=== PATIENT | female | born 1990 | race Caucasian/White ===

== ENCOUNTER 2017-10-07 21:26 | Emergency (ER) | payer BC ==
[~2017-10-07] VITALS: Ht 157.5 cm; Wt 63.5 kg
== END 2017-10-07 22:36 | disposition home or self-care (01) ==
LOC: ED 21:26
DX: R07.81 Pleurodynia (principal); Z87.891 Personal history of nicotine dependence
CPT/HCPCS: 71046; 81001; 87088; 99283

== ENCOUNTER 2023-02-23 08:00 | Inpatient (IN) | payer BC ==
--- OUTSIDE RECORDS SUMMARY | ~2023-02-23 | XMS | Continuity of Care Document ---
Demographics + + + | Address | [address] | | | [place] [address] | + + + | Preferred Language | Unknown | + + + | Marital Status | Never | + + + | Confucianism Affiliation | Unknown | + + + | Race | White | + + + | Ethnic Group | Unknown | + + + Author + + + | Author | [facility] | + + + | Organization | [facility] | + + + | Address | [address] | | | [place] [address] | + + + | Phone | | + + + Care Team Providers + + + + | Care Sheet Metal Layout Worker Name | Role | Phone | + + + + Unavailable | Unavailable | + + + + Allergies No information. Encounters No information. Functional Status No information. Immunizations No information. Medications No information. Problems + + + + | date | description | facility | + + + + | 2022-08-01 09:24 | [facility] | [facility] | | | NORMAL FIRST PREG, FIRST | | | | [facility] | | + + + + | 2022-08-01 09:24 | 8 WEEKS GESTATION OF | [facility] | | | | | + + + + | 2022-08-01 09:24 | 10 WEEKS GESTATION OF | [facility] | | | | | + + + + | 2022-10-23 10:48 | [facility] | [facility] | | | NORMAL FIRST PREG, SECOND | | | | [facility] | | + + + + | 2022-10-23 10:48 | 20 WEEKS GESTATION OF | [facility] | | | | | + + + + | 2023-01-17 20:09 | UTERINE SIZE-DATE | [facility] | | | DISCREPANCY, THIRD | | | | [facility] | | + + + + | 2023-01-17 20:09 | UTERINE SIZE-DATE | [facility] | | | DISCREPANCY, UNSPECIFIED | | | | [facility] | | + + + + | 2023-01-17 20:09 | 37 WEEKS GESTATION OF | [facility] | | | | | + + + + | 2023-02-07 16:26 | SPOTTING COMPLICATING | [facility] | | | , THIRD [facility] | | + + + + | 2023-02-07 16:26 | 36 WEEKS GESTATION OF | [facility] | | | | | + + + + Procedures No information. Results/Labs No information. Social History No information. Vital Signs No information."
[2023-02-23 09:27] VITALS: BP 140/69
--- NOTE | 2023-02-23 12:36 | PR ---
[facility] [address] [place], [place] [address] Signed Progress Notes IP Datetime Report Generated by CPN: 02/23/2023 12:36 PROGRESS NOTES: [id number] Impression: Reassuring Heart Rate Procedures: Intrauterine Pressure Catheter Plan: Continue Present Management VITAL SIGNS: [id number] EXAM: [id number] Dilatation: 1.5 Effacement: 70 Station: -3 Contractions: acontractile MEMBRANES: [id number] Membranes Status: Ruptured Amniotic Fluid Color: Clear Comments: No cervical change Contractions tracing poorly; pt denies discomfort. IUPC placed without difficulty. Continue pitocin and Davis per protocol. FETUS A: [id number] FHR Baseline: 145 Variability: Moderate 6-25bpm Accelerations: 15X15 Decelerations: None FHR Category: Category I Presentation: Vertex Comments on Fetus A: No evidence of acidemia FETUS B: [id number] Signing Physician: Lili Velazco DO Copies: ~ *Electronically Signed* 02/23/23 1236 LILI VELAZCO DO PATIENT NAME: ENRIQUE MANN PROGRESS NOTE DATE OF : 89 PHYSICIAN: LILI VELAZCO DO RPT #: [id number] REPORT IS CONFIDENTIAL AND NOT TO BE RELEASED WITHOUT AUTHORIZATION
--- NOTE | 2023-02-23 17:55 | PR ---
[facility] [address] [place], [place] [address] Signed Progress Notes IP Datetime Report Generated by CPN: 02/23/2023 17:55 PROGRESS NOTES: [id number] Impression: Reassuring Heart Rate Procedures: Scalp Electrode; Amnio Infusion Plan: Anesthesia Consult VITAL SIGNS: [id number] EXAM: [id number] Dilatation: 3.0 Effacement: 80 Station: -3 Contractions: acontractile MEMBRANES: [id number] Membranes Status: Ruptured Amniotic Fluid Color: Clear Comments: FSE placed without difficulty. Pt using nitrous for contractions with minimal apparent relief, requesting epidural. -Anesthesia notified of request for epidural -Amnioinfusion: 250mL bolus warm fluid over 30 min then 125mL/hr -Discussed with pt: if no significant improvement in variable decelerations, cesaream delivery may be indicated. Pt and FOB verbalized understanding. FETUS A: [id number] FHR Baseline: 145 Variability: Moderate 6-25bpm Accelerations: 15X15 Decelerations: None FHR Category: Category I Presentation: Vertex Comments on Fetus A: No evidence of acidemia FETUS B: [id number] Signing Physician: Krystal Velazco DO Copies: ~ *Electronically Signed* 02/23/23 0053 KRYSTAL VELAZCO DO PATIENT NAME: ENRIQUE MANN PROGRESS NOTE DATE OF : 89 PHYSICIAN: KRYSTAL VELAZCO #: [id number] REPORT IS CONFIDENTIAL AND NOT TO BE RELEASED WITHOUT AUTHORIZATION
--- NOTE | 2023-02-23 20:19 | NUR ---
02/23/232017 Carley Barragan 2006 PATIENT ARRIVES TO ROOM 106 FROM OR. AWAKE, SLIGHTLY SHAKEY. STATES SHE HAS NO PAIN OR NAUSEA, BUT FEELS A LITTLE COLD. WARM BLANKETS GIVEN. SO AND BABY AT BEDSIDE. 2014 PATIENT BREAST FEEDING BABY LEFT BREAST WITH FBC RN AT BEDSIDE. AWAKE BUT DROWSY. RESP EVEN AND UNLABORED, ROOM AIR SATS >95%.
[2023-02-23 20:31] VITALS: BP 108/51
--- NOTE | 2023-02-24 12:19 | PR ---
[facility] [address] [place] [address] Signed PP Progress Notes Datetime Report Generated by CPAtiya: 02/24/2023 12:19 SUBJECTIVE: [id number] Pain: Within Normal Limits Nausea/Vomiting: Present Vital Signs: [id number] Vital Signs: Reviewed; Within Normal Limits Cardiovascular: Normal Respiratory: Normal Abdomen/Uterus: Abnormal Lochia: Normal Vulva/Perineum: Not Done Breasts: Not Done CVA Tenderness: Not Done Extremities: Normal Incision: Normal Progress: Normal Exam Comments: Abdomen with active BS. Fundus firm, NT @ U-1. H/H 10.6/31.9, WBC 21.8, plat 254k IMPRESSION/PLAN/PROCEDURES: [id number] Impression: Normal Progression Other Impression: N/V Other Plans: Ambulate, begin Reglan ATC Procedures: None Progress Notes: Doing well other than nausea and vomiting after meals. Will begin Reglan ATC to see if this is helpful. Signing Physician: Jasmyn Minaya MD Copies: ~ *Electronically Signed* 02/24/23 1219 JASMYN MINAYA MD PATIENT NAME: ENRIQUE MANN PROGRESS NOTE DATE OF : 89 PHYSICIAN: JASMYN MINAYA MD RPT #: [id number] REPORT IS CONFIDENTIAL AND NOT TO BE RELEASED WITHOUT AUTHORIZATION
--- NOTE | 2023-02-25 09:50 | PR ---
[facility] [address] [facility] [place], [place] [address] Signed PP Progress Notes Datetime Report Generated by AI: 02/25/2023 09:50 SUBJECTIVE: [id number] Pain: Within Normal Limits Nausea/Vomiting: Denies Flatus: Yes Vital Signs: [id number] Vital Signs: Reviewed; Within Normal Limits Cardiovascular: Normal Respiratory: Normal Abdomen/Uterus: Abnormal Lochia: Normal Vulva/Perineum: Not Done Breasts: Not Done CVA Tenderness: Not Done Extremities: Normal Incision: Normal Progress: Abnormal Exam Comments: Abdomen with active BS. Fundus firm, NT @ U-1. IMPRESSION/PLAN/PROCEDURES: [id number] Impression: Normal Progression; Difficulties Other Impression: N/V Plan: Consult Other Plans: Ambulate, begin Reglan ATC Procedures: None Progress Notes: Doing well other than some feeding issues. Will arrange for breast feeding help with probable discharge tomorrow if doing well. Signing Physician: Jasmyn Minaya MD Copies: ~ *Electronically Signed* 02/25/23 0950 JASMYN MINAYA MD PATIENT NAME: ENRIQUE MANN PROGRESS NOTE DATE OF : 89 PHYSICIAN: JASMYN MINAYA MD RPT #: [id number] REPORT IS CONFIDENTIAL AND NOT TO BE RELEASED WITHOUT AUTHORIZATION
--- NOTE | 2023-02-26 07:32 | PR ---
[facility] [address] [facility] [place], [place] [address] Signed PP Progress Notes Datetime Report Generated by CPN: 02/26/2023 07:32 SUBJECTIVE: [id number] Pain: Within Normal Limits Nausea/Vomiting: Denies Flatus: Yes Vital Signs: [id number] Vital Signs: Reviewed; Within Normal Limits Cardiovascular: Not Done Respiratory: Not Done Abdomen/Uterus: Abnormal Lochia: Normal Vulva/Perineum: Not Done Breasts: Not Done CVA Tenderness: Not Done Extremities: Normal Incision: Normal Progress: Normal Exam Comments: Abdomen with active BS. Fundus firm, NT @ U-2. IMPRESSION/PLAN/PROCEDURES: [id number] Impression: Normal Progression Other Impression: N/V Plan: Remove Rachel; Discharge Other Plans: Ambulate, begin Reglan ATC Procedures: None Progress Notes: Doing well. She is ready for D/C today. Signing Physician: Jasmyn Minaya MD Copies: ~ *Electronically Signed* 02/26/23731 JASMYN MINAYA MD PATIENT NAME: ENRIQUE MANN JESSE PROGRESS NOTE DATE OF : [birth year] PHYSICIAN: JASMYN MINAYA MD RPT #: [id number] REPORT IS CONFIDENTIAL AND NOT TO BE RELEASED WITHOUT AUTHORIZATION
--- NOTE | 2023-02-26 13:45 | NUR ---
AM VISIT. PT WAS SITTING ON BED FINISHING BREAKFAST. DAD WAS SITTING ON COUCH HOLDING BABY. BABY WAS QUIET AND APPEARED CONTENT. BOTH PARENTS CONVERSED WITH ME AND REACTED PROMPTLY AND AFFECTIONATELY TO BABY. DAD TENDED TOWARDS DISTRACTION WITH TELEVISION BUS PROMPTLY RETURNED ATTENTION TO CONVERSATION. PARENTS REQUESTED BLESSING FOR BABY WHICH I PROVIDED.
--- NOTE | 2023-02-27 17:20 | OR ---
[facility] [address] [place], [place] [address] Signed DATE OF OPERATION: 02/23/2023 SURGEON: Jasmyn Minaya MD TUB PULLER: Lili Velazco DO. PREOPERATIVE DIAGNOSIS: Term , premature rupture of membranes, intolerance to labor. POSTOPERATIVE DIAGNOSIS: Term , premature rupture of membranes, intolerance to labor. Delivered. PROCEDURE: Primary section with low segment transverse uterine incision. ANESTHESIA: Epidural. ESTIMATED BLOOD LOSS: 750 mL. DRAINS: Umsa catheter. INDICATIONS AND FINDINGS: The patient is a 32-year-old female who was admitted after premature rupture of membranes at 39+ wks. She was begun on pitocin augmentation as she did not enter spontaneous labor. She requested and received an epidural. She had made minimal progress. She was having intermittent variable decelerations which started even before the epidural was placed. She did have an amnioinfusion started because of this. However, she developed a prolonged deceleration which prompted intervention with emergent section. Her pitocin had been discontinued and she received subQ terbutaline. She was taken to the operating room where she was delivered of a little boy via lower segment transverse uterine incision with Apgars of 8 and 9 and a weight of 8 pounds 1 ounce. The uterus, tubes, ovaries, and placenta otherwise appeared normal. DESCRIPTION OF PROCEDURE: Electronically Signed By: JASMYN MINAYA MD 02/27/23 1720 PATIENT NAME: ENRIQUE MANN OPERATIVE REPORT DATE OF : 89 REPORT #: [id number] PHYSICIAN: JASMYN MINAYA MD PCP: NO PRIMARY CARE PHYSICIAN REPORT IS CONFIDENTIAL AND NOT TO BE RELEASED WITHOUT AUTHORIZATION [facility] [address] [place], [place] [address] Signed The patient was prepped and draped in the supine position. A Pfannenstiel skin incision was made and carried down through the fascia and the incision extended laterally. The inferior and superior fascial flaps were created. The muscles were bluntly divided and the peritoneum entered bluntly and the incision extended. The Cecil retractor was placed. Uterine incision was made at the upper aspect of the peritoneal reflection. The baby was delivered with the above findings and handed off to the pediatric staff in attendance. The placenta was removed manually and the uterus explored with a lap tape assuring no remaining fragments. The edges of the incision were identified and closed with a running locking stitch of 0 Monocryl. A second layer was placed as a vertical imbricating stitch. Good hemostasis was noted. She did have significant uterine atony at delivery which eventually responded to IV Pitocin, Cytotec suppository, and massage. She also received TXA. Following this, the abdomen was irrigated, inspected, and bleeding points over the bladder flap were controlled with cautery. The Cecil retractor was removed and the peritoneum identified. The peritoneum was closed with a running suture of 3-0 Vicryl. The muscles were brought together with interrupted sutures of 0 Vicryl. Irrigation was done and bleeding points controlled with cautery. The fascia was then closed from each angle to the midline with a running suture of 0 Vicryl. The subcu space was irrigated and bleeding points controlled with cautery. The deep space was closed with interrupted sutures of 3-0 Vicryl. The skin was closed with brenda. All sponge and needle counts were correct. She tolerated the procedure well and was taken to the recovery room in good condition. Jasmyn Minaya MD PJW/MODL /[id number] Copies: ~ Electronically Signed By: JASMYN MINAYA MD 02/27/23 1720 PATIENT NAME: ENRIQUE MANN OPERATIVE REPORT DATE OF : 89 REPORT #: [id number] PHYSICIAN: JASMYN MINAYA MD PCP: NO PRIMARY CARE PHYSICIAN REPORT IS CONFIDENTIAL AND NOT TO BE RELEASED WITHOUT AUTHORIZATION
== END 2023-02-26 12:00 | disposition home or self-care (01) | DRG 788 ==
LOC: FBCO 08:00 → FBC 08:35
PROVIDERS: ADMIT Obstetrics & Gynecology; ATTEND Obstetrics & Gynecology
PROC: 10D00Z1 Extraction of Products of Conception, Low, Open Approach (ICD-10-PCS; 2023-02-23)
PROC: 00HU33Z Insertion of Infusion Device into Spinal Canal, Percutaneous Approach (ICD-10-PCS; 2023-02-23)
PROC: 3E0R3BZ Introduction of Anesthetic Agent into Spinal Canal, Percutaneous Approach (ICD-10-PCS; 2023-02-23)
PROC: 4A033R1 Measurement of Arterial Saturation, Peripheral, Percutaneous Approach (ICD-10-PCS; 2023-02-23)
PROC: 10H07YZ Insertion of Other Device into Products of Conception, Via Natural or Artificial Opening (ICD-10-PCS; 2023-02-23)
PROC: 4A1HXCZ Monitoring of Products of Conception, Cardiac Rate, External Approach (ICD-10-PCS; 2023-02-23)
PROC: 3E033VJ Introduction of Other Hormone into Peripheral Vein, Percutaneous Approach (ICD-10-PCS; principal; 2023-02-23 19:38)
DX: O42.02 Full-term premature rupture of membranes, onset of labor within 24 hours of rupture (principal); Z3A.39 39 weeks gestation of pregnancy; Z37.0 Single live birth; Z67.10 Type A blood, Rh positive; Z98.890 Other specified postprocedural states; Z98.818 Other dental procedure status; Z88.8 Allergy status to other drugs, medicaments and biological substances
CPT/HCPCS: 01961; 36415; 80053; 82570; 82803; 83615; 84156; 84550; 85027; 86850; 86900; 86901; A9270; J0456; J0690; J1100; J1650; J1885; J2274; J2405; J2540; J2590; J3105; J7121